=== PATIENT | female | born 1955 | race Caucasian/White ===

== ENCOUNTER 2019-11-01 10:55 | Emergency (ER) | payer OTHER ==
[~2019-11-01] VITALS: Ht 162.6 cm; Wt 106.1 kg
[2019-11-01 10:58] VITALS: BP 150/60
--- NOTE | 2019-11-01 11:03 | NUR ---
Patient to bed 12. RN evaluating patient at bedside.
[2019-11-01] MEDS ORDERED: IBUPROFEN 600 MG TAB PO ONE (11:20)
--- NOTE | 2019-11-01 11:34 | NUR ---
pt returned from ct via wheelchair
--- NOTE | 2019-11-01 11:39 | NUR ---
strep swab collected
--- NOTE | 2019-11-01 11:53 | NUR ---
PT REPORTS 8 NECK PAIN, H/A x FRIDAY. PT DENIES SOB OR N/V/D. PT STATES SHE BELIEVES SHE SLEPT ON HER NECK WRONG. PT ALERT AND AWAKE. AMBULATORY WITH STEADY GAIT. PMH-HTN RX- NORVASC, HYZARR, TYLENOL ALLERGIES- AD[facility]
--- NOTE | 2019-11-01 11:55 | NUR ---
PT HAS ROM TO NECK
--- NOTE | 2019-11-01 12:00 | NUR ---
NADR, PAIN 08/26
[2019-11-01] MEDS ORDERED: predniSONE 20 MG TAB PO ONE (12:40)
[2019-11-01 12:54] VITALS: BP 144/64
--- NOTE | 2019-11-01 12:54 | NUR ---
Patient discharged with v/s stable. Written and verbal after care instructions given and explained. Patient alert, oriented and verbalized understanding of instructions. Ambulatory with steady gait. All questions addressed prior to discharge. ID band removed. Patient advised to follow up with PMD. Rx of IBUPROFEN 600MG AND PREDNISONE 20MG given. Patient educated on indication of medication including possible reaction and side effects. Opportunity to ask questions provided and answered.
== END 2019-11-01 12:54 | disposition home or self-care (01) ==
LOC: MED 10:55
DX: J02.9 Acute pharyngitis, unspecified (principal); M54.2 Cervicalgia; I10 Essential (primary) hypertension
CPT/HCPCS: 70490; 71045; 87081; 99285; J7512

== ENCOUNTER 2020-05-06 18:40 | Emergency (ER) | payer OTHER ==
[~2020-05-06] VITALS: Ht 167.6 cm; Wt 113.4 kg
[2020-05-06 19:01] VITALS: BP 171/89
[2020-05-06 19:20] VITALS: BP 171/89
--- NOTE | 2020-05-06 19:20 | NUR ---
SEEN AND EXAMINED BY PA WITH ORDERS AND CARRIED OUT.
[2020-05-06] MEDS ORDERED: HYDROcodone/APAP 5/325 MG 1 TAB TAB PO ONE (19:25)
--- NOTE | 2020-05-06 19:40 | NUR ---
SWAB DONE AND SENT LAB
--- NOTE | 2020-05-06 19:43 | NUR ---
MEDICATED PER [facility] ORDER, TOLERATED WELL.
--- NOTE | 2020-05-06 20:10 | NUR ---
PT GIVEN DISCHAGE AND RX INSTRUCTIONS BY APOLINAR GARZA. RX OF TYLENOL GIVEN.
--- NOTE | 2020-05-11 01:02 | NUR ---
Positive COVID-19 test results were received from lab. A copy of the test results were given to Infection Control.
== END 2020-05-06 20:10 | disposition home or self-care (01) ==
LOC: MED 18:40
DX: M79.10 Myalgia, unspecified site (principal); Z20.828 Contact with and (suspected) exposure to other viral communicable diseases; R68.83 Chills (without fever)
CPT/HCPCS: 71045; 99284; U0003